=== PATIENT | female | born 1985 | race Caucasian/White ===

== ENCOUNTER 2021-06-24 17:31 | Emergency (ER) | payer OTHER, SELFPAY ==
[2021-06-24 17:41] VITALS: BP 120/79; PULSE 77; RESP 16; TEMP 37; O2SAT 97; BMI 28.8
--- NOTE | 2021-06-24 17:51 | ED_ITS ---
HPI - Back Pain/Injury General Chief Complaint: Back Pain/Injury Stated Complaint: R/O kidney stones Time Seen by Provider: 06/24/21 17:45 History of Present Illness HPI Narrative: Patient is a 36-year-old female history of depression presenting with left back pain. Started last night unable to find any comfortable position. Goes down into her buttock and leg and occasionally into her groin. It definitely hurts to stand and sit. She denies any nausea or vomiting. She has no abdominal pain. She took Aleve this morning it seemed to help. She did do some light yd work yesterday and moved a couple of like things in the garage she said nothing that seemed to strenuous. She feels like she has more pain in her hip and groin. Related Data Previous Rx's Medication Instructions Recorded methocarbamol 750 mg tablet 750 mg PO Q8H PRN #14 tab 06/24/21 Allergies Allergy/AdvReac Type Severity Reaction Status Date / Time levofloxacin [From Levaquin] Allergy Unknown Verified 06/24/21 18:30 Review of Systems Review of Systems Narrative: GENERAL: Denies chills, fatigue, malaise, fever, sweats, travel HEENT: Denies sinus pain, ear pain, sore throat, difficulty swallowing, neck pain RESPIRATORY: Denies dyspnea, cough, wheezing, hemoptysis, sputum. CARDIOVASCULAR: Denies chest pain, palpitations, orthopnea, edema GASTROINTESTINAL: Denies nausea, vomiting, abdominal pain, diarrhea, constipation, melena. : Denies dysuria, frequency, incontinence, hematuria, urinary retention, flank pain. MUSCULOSKELETAL: See HPI SKIN: No rash, no erythema, no pruritus NEUROLOGIC: Denies weakness, dizziness, headache, numbness, change in speech, confusion PSYCHIATRIC: No concerning psychosocial issues. 12 point review of systems is negative except for those stated above and HPI Exam Initial Vital Signs Initial Vital Signs: Vital Signs Temperature 98.6 F 06/24/21 17:41 Pulse Rate 77 06/24/21 17:41 Respiratory Rate 16 06/24/21 17:41 Blood Pressure 120/79 06/24/21 17:41 Pulse Oximetry 97 06/24/21 17:41 GENERAL: Well appearing 36-year-old female sitting on bed HEENT: Head atraumatic,EOMI, pupils reactive, face symmetric, moist mucous membranes CARDIOVASCULAR: Regular rate and rhythm without murmurs, rubs or gallops. RESPIRATORY: Breath sounds equal bilaterally, no wheezes rales or rhonchi. ABDOMEN: Soft, nontender. Normoactive bowel sounds all 4 quadrants. No guarding or rebound. BACK: No midline tenderness tender left lateral paraspinal muscles : No CVA tenderness EXTREMITIES: Normal range of motion, no clubbing or edema. Neurovascularly intact NEUROLOGICAL: Alert and oriented x4.Normal gait and speech. SKIN: Warm, dry, no laceration, no petechiae, no rashes or lesions. Course Orders Ordered: ED Orders 06/24/21 17:46 Test Urine Stat Urinalysis and Microscopic Stat Discontinued Medications Ketorolac Tromethamine (Ketorolac 30 Mg/Ml Vial) 30 mg IM NOW ONE Stop: 06/24/21 18:01 Last Admin: 06/24/21 18:30 Dose: 30 mg Documented by: JAMIA Vital Signs Vital signs: Vital Signs - 8 hr 06/24/21 17:41 Temperature 98.6 F Pulse Rate 77 Respiratory Rate 16 Blood Pressure 120/79 Pulse Oximetry 97 MDM - Back Pain/Injury Lab Data Labs: Lab Results 06/24/21 06/24/21 Range/Units 17:46 17:46 Urine Color Yellow Urine Appearance Clear Urine pH 6.5 (4.5-8.0) Ur Specific [place] <=1.005 (1.000-1.035) Urine Protein Negative (Negative) Urine Glucose (UA) Negative (Negative) g/dL Urine Ketones Negative (NEGATIVE) Urine Occult Blood Trace-intact (Negative) Urine Nitrate Negative (Negative) Urine Bilirubin Negative (NEGATIVE) Urine Urobilinogen 0.2 (0.2) E.U./dL Ur Leukocyte Esterase Trace H (NEGATIVE) Urine RBC 0-1/hpf (0-5/HPF) Urine WBC 1-5/hpf (0-5/HPF) Ur Squamous Epith Cells 5-10 /hpf H (0-5/HPF) Urine Bacteria Occasional (0-1) (None) Ur Culture Indicated? Cult not indicated Urine Test Negative (Negative) [facility] Narrative Medical decision making narrative: Patient's pain seems to be musculoskeletal in nature. It is worse with certain positions cyst radiating down her buttock and leg at times she also has pain in her right. This does not seem to be kidney stone related. At this time recomm end min conservative treatment and pain management. She is given a dose of Toradol here in the ED. And prescription for muscle relaxers. Discharge Plan Departure Patient Disposition: Home Clinical Impression: Back pain Instructions: DI for Back Strain or Sprain Activity Restrictions/Additional Instructions: *You have been diagnosed with back pain *What to do: At this time is likely that you have musculoskeletal strain. I recommend heating pad light stretching light activity no strenuous activity or heavy lifting. *Continue to take medications as directed Aleve 500 mg every 12 hours if needed for [id number] Metacarpal 750 mg to the 1500 mg every 8 hours as needed for muscle spasm this can cause drowsiness *Follow up with your primary care provider in 2-3 days or call [phone] *Return to ER if you should have increased pain leg weakness, changes in bowel or bladder habits or any new, worsening or concerning symptoms Prescriptions: New methocarbamol 750 mg tablet 750 mg PO Q8H PRN (Reason: muscle spasm) Qty: 14 0RF Referrals: [facility] Kimmy [Provider Group]
[2021-06-24 18:08] LABS: Appearance Urine UA CLEAR; Bilirubin Urine UA NEGATIVE (NEGATIVE); Color Urine UA YELLOW; Glucose Urine UA NEGATIVE (Negative); Ketones Urine UA NEGATIVE (NEGATIVE); Leukocyte Esterase Urine UA TRACE (NEGATIVE); Nitrite Urine UA NEGATIVE (Negative); Occult Blood Urine UA TRACE-INTACT (Negative); Protein Urine UA NEGATIVE (Negative); Specific Gravity Urine UA <=1.005 (1.000-1.035); Urobilinogen Urine UA 0.2 E.U./dL (0.2)
[2021-06-24 18:12] LABS: Pregnancy Test Urine Negative (Negative)
[2021-06-24 18:15] LABS: pH Urine UA 6.5 (4.5-8.0)
[2021-06-24 18:17] LABS: Bacteria Urine Occasional (0-1); Culture Indicated Urine Cult Not Indicated; RBC Urine 0-1/HPF (0-5/HPF); Squamous Epithelial Cell Urine 5-10 /HPF (0-5/HPF); WBC Urine 1-5/HPF (0-5/HPF)
[2021-06-24] MEDS: KETOROLAC 30 MG/ML VIAL IM (18:30)
== END 2021-06-24 18:37 | disposition home or self-care (01) ==
PROVIDERS: Emergency Provider Emergency Medicine
DX: M54.9 Dorsalgia, unspecified (principal)
CPT/HCPCS: 81001; 81025; 96372; 99283; J1885